=== PATIENT | female | born 1975 | race Caucasian/White ===

== ENCOUNTER 2023-02-15 11:48 | Outpatient (REF) | payer BC, SELFPAY ==
[2023-02-15 13:30] LABS: MANUAL DIFF FLAG NO
[2023-02-15 14:08] LABS: Basophils Absolute Auto 0.1 X10*3/uL (0.0-0.2); Basophils Percent Auto 1.3 % (0-2); Eosinophils Absolute Auto 0.2 X10*3/uL (0.0-0.4); Eosinophils Percent Auto 3.8 % (0-4); Hemoglobin 13.4 g/dl (12.0-16.0); Imm Gran Abs Auto 0.01 X10*3/uL (0.00-0.03); Imm Gran Pct Auto 0.3 % (0.0-0.4); Lymphocytes Absolute Auto 0.8 X10*3/uL (1.2-4.9); Mean Corpuscular HGB Conc 32.7 g/dl (31.0-35.0); Mean Corpuscular Hemoglobin 27.6 pg (27.0-33.0); Mean Corpuscular Volume 84.5 fL (80.0-98.0); Mean Platelet Volume 10.5 fL (9.4-12.3); Monocytes Absolute Auto 0.3 X10*3/uL (0.1-1.2); Monocytes Percent Auto 8.5 % (2-11); Neutrophils Absolute Auto 2.6 x10*3/uL (2.0-8.3); Neutrophils Percent Auto 65.1 % (45-73); Platelet Count 260 X10*3/uL (160-400); Red Blood Count 4.85 X10*6/uL (4.20-5.50); Red Cell Distribution Width 15.5 % (11.0-16.0)
[2023-02-15 14:29] LABS: Alanine Aminotransferase 21 U/L (0-31); Albumin Level 4.2 g/dL (3.5-5.0); Alkaline Phosphatase 107 U/L (39-117); Anion Gap 15 (12-20); Aspartate Amino Transferase 24 U/L (5-31); Bilirubin Direct 0.1 mg/dL (0.0-0.5); Bilirubin Total 0.4 mg/dL (0.0-1.0); Blood Urea Nitrogen 12 mg/dL (9-16); Calcium 9.4 mg/dL (8.4-10.2); Carbon Dioxide 26 mmol/L (22-29); Chloride 103 mmol/L (96-108); Estimated Glomerular Filt Rate > 60; Glucose Random 74 mg/dL (60-115); Potassium 4.8 mmol/L (3.3-5.1); Sodium 139 mmol/L (135-145); TSH reflex Free T4 1.62 uIU/mL (0.32-4.0); Total Protein 7.6 g/dL (6.5-8.0)
== END 2023-02-15 11:49 | disposition home or self-care (01) ==
LOC: HO.HMGCLDS 11:48
PROVIDERS: PCP Internal Medicine; Visit Provider Internal Medicine
DX: F34.1 Dysthymic disorder (principal); R63.5 Abnormal weight gain; C50.919 Malignant neoplasm of unspecified site of unspecified female breast
CPT/HCPCS: 36415; 80048; 80076; 84443; 85025

== ENCOUNTER 2024-05-30 14:07 | Outpatient (AMB) | payer BC, SELFPAY ==
--- NOTE | 2024-05-30 14:11 | MHC.PC.OV ---
Vital Signs 05/30/24 14:15 Height 5 ft 0.75 in Weight 146 lb BMI 27.8 BP 116/76 Blood Pressure Location Rt brachial Pulse 66 Pulse Source Pulse Oximeter Temp 97.2 F Pulse Oximetry (%) 99 Intake Visit Reasons: follow up Intake Note: no other issues Allergies Novocain Allergy (Uncoded 05/30/24 14:45) Anaphylaxis Medication List - Last Reconciled 05/30/24 by Josefina Cadena PA-C bupropion HCl 400 mg PO BID fremanezumab-vfrm (Ajovy) 225 mg (1.5 mL) subcut .QMONTH lorazepam 1 mg PO DAILY PRN naltrexone 50 mg PO DAILY naratriptan 2.5 mg PO Q4H PRN prasterone (dhea) (Intrarosa) 1 insert vaginal BEDTIME sertraline 50 mg PO DAILY zoledronic acid 4 mg IV [id number] PFSH Medical History (Updated 05/30/24 @ 14:59 by Josefina Cadena PA-C) Colon cancer screening History of echocardiogram Osteopenia Persistent depressive disorder Breast cancer, right Premenstrual dysphoric disorder History of Lyme disease Leukopenia Anemia Migraine headache Anxiety Surgical History History of bilateral salpingo-oophorectomy H/O bilateral mastectomy Physical exam (Primary Care) Vital Signs: Last Vital Signs Temp 97.2 F 05/30/24 14:15 Pulse 66 05/30/24 14:15 BP 116/76 05/30/24 14:15 Pulse Ox 99 05/30/24 14:15 Care Plan Goal for BP management: 130/80 at goal BMI result Body Mass Index 27.8 BMI Assessment/Plan discussion: High BMI High, discussed plan: lifestyle, weight reduction, dietary, physical activity and alcohol moderation Coding Level of Care Code Est Pt Level 4 (65610) Complex EM visit Add On G2211 Diagnoses Osteopenia M85.80 Persistent depressive disorder F34.1 Breast cancer, right C50.911 History of echocardiogram Z92.89 Migraine headache G43.909 Anxiety F41.9 Anemia D64.9 Leukopenia D72.819 Colon cancer screening Z12.11 Assessment & Plan Assessment & Plan (1) Osteopenia: Comment: Based on DEXA scan 07/2019 floor T-score of lumbar spine of-0.2, left femoral neck of-1.3 and left total hip of -0.9. - To be performed every 2 years while on aromatase inhibitor - Continue Zoledronic acid infusion every 6 months to decreased risk of bony metastasis given high risk disease in addition to maintaining bone integrity while on aromatase inhibitor started 08/2023, last received 02/2024 and tolerating Code(s): M85.80 - Other specified disorders of bone density and structure, unspecified site Category: Medical Plan: Patient currently on Zoledronic acid infusions every 6 months. Condition is chronic and stable continue to monitor. (2) Persistent depressive disorder: Code(s): F34.1 - Dysthymic disorder Category: Medical Plan: Patient currently on sertraline 50 mg daily, p.r.n. lorazepam 1 mg daily. Condition is chronic and stable continue to monitor. (3) Breast cancer, right: Comment: [facility] Previously on Exemestane 11/2023-02/2024 Previously on Anastrozole 07/2023-11/2023 stared on Letrozole 03/07/2024 - Goal completion of a minimum of 5 years of adjuvant endocrine therapy, but likely 7 years given high risk Code(s): C50.911 - Malignant neoplasm of unspecified site of right female breast Category: Medical Plan: Patient is status post mastectomy being followed by [facility] oncology. Condition is chronic and stable continue to monitor. (4) History of echocardiogram: Comment: Echocardiogram to be performed annually due to given previous administration of Doxorubicin Code(s): Z92.89 - Personal history of other medical treatment Category: Medical Plan: Patient being followed by [facility] Oncology having annual echocardiograms due to previously on doxorubicin. Last echocardiogram was 03/23/2024 within normal limits (5) Migraine headache: Code(s): G43.909 - Migraine, unspecified, not intractable, without status migrainosus Category: Medical Plan: Patient to continue Ajovy injections 1.5 mL subQ monthly. Condition is chronic and stable continue to monitor. (6) Anxiety: Code(s): F41.9 - Anxiety disorder, unspecified Category: Medical Plan: Patient to continue lorazepam 1 mg daily p.r.n., sertraline 50 mg daily. Condition is chronic and stable continue to monitor. (7) Anemia: Code(s): D64.9 - Anemia, unspecified Category: Medical Plan: Condition is chronic and stable patient being followed by Oncology at [facility] will continue to monitor. (8) Leukopenia: Code(s): D72.819 - Decreased white blood cell count, unspecified Category: Medical Plan: Condition is chronic and stable being followed by Oncology at [facility] will continue to monitor (9) Colon cancer screening: Code(s): Z12.11 - Encounter for screening for malignant neoplasm of colon Category: Medical Plan: Patient had a prior bad experience from a colonoscopy in the past. Will order Cologuard. Patient understands if she has a positive Cologuard she will need a colonoscopy. Will continue to monitor. Plan Plan Continuation of annual echocardiograms is necessary for monitoring alongside regular oncologist appointments currently set quarterly. The use of Zometa infusions biannually is endorsed for osteopenia management. A Cologuard test is offered due to prior poor tolerance of colonoscopy procedures. Psychotropic medication for anxiety and depression is adjusted for dosage accuracy, alongside preventative migraine treatments. Dietary supplements remain consistent with bone health recommendations. Comprehensive blood work will capture all necessary parameters, and any abnormal findings will prompt earlier follow-up. Consultation with a new hot metal car operator resulted in Intrarosa management for menopausal symptoms. Orders: Orders Comprehensive Harrison. Panel Fast Today Z00.00 - Encounter for general adult medical examination without abnormal findings Magnesium Today Z00.00 - Encounter for general adult medical examination without abnormal findings Vitamin D 25-OH Total Today Z00.00 - Encounter for general adult medical examination without abnormal findings Vitamin B12 and Folate Today Z00.00 - Encounter for general adult medical examination without abnormal findings Lipid Panel Today Z00.00 - Encounter for general adult medical examination without abnormal findings TSH reflex Free T4 Today Z00.00 - Encounter for general adult medical examination without abnormal findings Vitamin B1 Today Z00.00 - Encounter for general adult medical examination without abnormal findings Hemoglobin A1c Today Z00.00 - Encounter for general adult medical examination without abnormal findings Referrals Cologuard Test Z12.11 - Encounter for screening for malignant neoplasm of colon, Z12.12 - Encounter for screening for malignant neoplasm of rectum Patient Instructions: Patient Instructions - Continue annual echocardiograms per your oncologist's ordering. - Follow up with Dr. Banda in three months. - Schedule Zometa infusions every six months. - Proceed with the Cologuard test as an alternative to colonoscopy. - Maintain prescribed doses for anxiety and depression medications. - Administer regular injections for migraine prevention. - Adhere to calcium, vitamin D, and magnesium supplement regimen. - Submit to blood work at the [facility]. - Use Intrarosa as directed for menopausal symptoms. - Seek immediate care for symptoms of a urinary tract infection or an adverse medical event. Scribe Plan - Not visible on output: History of Present Illness The patient is a 49-year-old female presenting for a routine follow-up. Patient is currently being followed by Oncology at [facility] for breast cancer post-mastectomy. Her cancer treatment regimen involves Letrozole. She was previously on Doxorubicin therapy, although discontinued due to mood disturbances. Due to being on doxorubicin therapy previously she undergoes regular echocardiograms to assess cardiac status. Her oncologist ordered the echocardiogram. She reports she had a normal echocardiogram March of 2024. She reports she had a colonoscopy many many years ago although previous traumatic experiences during colonoscopy have led to discussions of alternative screening measures. The patient?s medical history is notable for treated osteopenia, migraines, anxiety, depressive disorder, resolved premenstrual dysphoric disorder following partial hysterectomy, which halted estrogen-related cycling. Furthermore, she maintains active management of potential osteoporosis with Zometa infusions every 6 months. The patient remains engaged in weight management strategies involving pharmacological interventions including Bupropion and Naltrexone. Patient had a DEXA scan on 07/20/2023 that showed osteopenia. They recommended to be performed every 2 years while on and aromatase inhibitor. A recent, first-ever UTI episode resolved with antibiotic therapy administered at an external facility. Essential chronic disease monitoring and preventative care are ongoing, following protocols suggested by her oncologist and primary care services. Social History - ; present, no children living at home, but they visit during college breaks. - Household includes a supportive family structure. - The patient actively manages weight through prescribed medications. - Reports taking Vitamins D, Calcium, and Magnesium supplements. - Engages with healthcare systems for routine and specialist interventions. Review of Systems - General: Denies any significant weight changes. - Musculoskeletal: Reports history of osteopenia. - Psychiatric: Reports anxiety and depressive disorder. - Neurological: Reports migraines. - Genitourinary: Recent urinary tract infection. Physical Exam Appearance: Alert. Oriented X3. No acute distress. Head: Normal external exam. Normocephalic. Atraumatic. Eyes: Pupils are equal, round, and reactive to light. Extraocular movements intact. Conjunctiva and sclera normal. Eyelids normal. Ears: External auditory canal normal. Tympanic membranes normal. Throat: Pharynx normal. Uvula midline. Moist mucous membranes. Neck: Normal inspection. Neck supple. Full range of motion. No adenopathy. Thyroid Normal. No meningeal signs. No neck mass noted. Cardiovascular: Normal heart rate and rhythm. Heart sound normal. No murmurs noted. Pulses normal throughout. Respiratory: No respiratory distress. Painless inspiration. Breath sounds normal. No wheezes/rales/rhonchi noted. Chest nontender. No accessory muscle usage noted or decreased air movement noted. Abdomen: Soft and nontender. Bowel sounds normal in all 4 quadrants. No distention noted. No organomegaly noted. No visible injury noted. Back: No costovertebral angle tenderness. Full range of motion noted. Skin: Skin warm and dry. Normal skin color. Normal skin turgor. No rashes/lesions/lacerations noted. Extremities: No lower extremity edema. Extremities exhibit normal range of motion. Extremities nontender. Neuro: Oriented X 3. No motor deficit. No sensory deficit. Reflexes normal. Results - Labs: Patient has routine blood work at [facility]. Had labs in March which was within normal limits. New fasting labs will be ordered. Labs printed out so patient can take with her to [facility] due to she already has labs ordered by her oncologist. She understands that they will need to be faxed to us for the blood work that we ordered. Patient was informed and verbally consented to the use of an ambient scribe for clinic note documentation during this visit. Discussion Notes In the visit today, we discussed the necessity of continued echocardiographic monitoring due to doxorubicin's cardiotoxic potential. I explored gastrointestinal screening options with the patient, identifying Cologuard as preferred given previous colonoscopy trauma. I confirmed the resurgence of anxiety and migraine symptoms, recommending adjusted doses of psychotropic medications. The usage of migraine prevention injectables is reviewed and supported due to positive past results. Osteoporosis treatments align with biannual Zometa infusion schedules, noted in her regimen. I highlighted the necessity of comprehensive blood panels relevant to her medication profile, excluding frequent CBCs managed by oncology. I emplaced the therapeutic details of Intrarosa for gynecological issues and ensured no additional medication refills were required at this time.
[2024-05-30 14:15] VITALS: BP 116/76; PULSE 66; TEMP 36.2; O2SAT 99; BMI 27.8
--- OUTSIDE RECORDS SUMMARY | 2024-05-30 17:23 | XMS_ITS | Clinical Summary ---
Author Organization [facility] Address [address] [place] [address] Phone Care Team Providers Care Director Appointment Name Role Phone SammyNick DO Primary Care Provider + [phone] Allergies Active Allergy Reactions Criticality Noted Date Comments Procaine Other (see comments) Medium 03/03/2022 Pain for several weeks Wheat Extract 03/04/2022 Pt reports she still eats wheat, reacted to allergy testing Medications naratriptan (AMERGE) 2.5 MG tablet Take 2.5 mg by mouth 1 (one) time if needed for migraine May repeat in 4 hours if unresolved. Do not exceed 5 mg in 24 hours. Active FLUoxetine (PROzac) 20 MG capsule Take 20 mg by mouth 1 (one) time each day Active Fremanezumab-vf rm (AJOVY SC) Inject 225 mg under the skin every 30 (thirty) days 02/09/2022 Active oxyCODONE (Roxicodone) 5 MG immediate release tablet Take 1 tablet (5 mg total) by mouth every 4 (four) hours if needed for moderate pain for up to 5 doses 5 tablet 03/04/2022 Active Active Problems Problem Noted Date Diagnosed Date Migraine 03/04/2022 Cancer of right female breast 03/03/2022 Social History Tobacco Use Types Packs/Day Years Used Date Smoking Tobacco: Never Smokeless Tobacco: Never Tobacco Cessation:Counseling Given: Not Answered Alcohol Use Standard Drinks/Week Comments Not Currently 0 (1 standard drink = 0.6 oz pure alcohol) former socially, not since [id number] Comments Unknown Sex and Gender Information Value Date Recorded Sex Assigned at Not on file Legal Sex Female 2:09 PM EST Gender Identity Not on file Sexual Orientation Not on file Last Filed Vital Signs Vital Sign Reading Time Taken Comments Blood Pressure 136/87 03/04/2022 10:54 AM EST Pulse 75 03/04/2022 10:54 AM EST Temperature 36.3 ??C (97.4 ??F) 03/04/2022 10:[address] Respiratory Rate 16 03/04/2022 10:54 AM EST Oxygen Saturation 99% 03/04/2022 10:54 AM EST Inhaled Oxygen Concentration - - Weight 63.5 kg (140 lb) 03/04/2022 10:54 AM EST Height 157.5 cm (5' 2 ) 03/04/2022 10:54 AM EST Body Mass Index 25.61 03/04/2022 10:54 AM EST Plan of Treatment Health Maintenance Due Date Last Done Comments Pneumococcal Vaccine: Pediat rics (0 to 5 Years) and At-Risk Patients (6 to 64 Years) (1 of 2 - PCV) 1981 Hepatitis B Vaccine (1 of 3 - 19+ 3-dose series) 01/12 Influenza Vaccine (#1) 2023 Colorectal Cancer Screening: Annual FOBT 01/13/2024 Colorectal Cancer Screening: Colonoscopy 01/13/2024 Colorectal Cancer Screening: Sigmoidoscopy 01/13/2024 Insurance [facility] Care Teams Director Appointment Relationship Specialty Start Date End Date Nick Christianson DO [address] [place] [address] PCP - General Internal Medicine 03/02/22
--- OUTSIDE RECORDS SUMMARY | 2024-05-30 17:23 | XMS_ITS ---
Author Organization Nick Christianson DO, FACP Address [address] [place], [place] [phone] Care Team Providers Care Production Worker Name Role Phone Nick Christianson Primary Care Provider REASON FOR VISIT RE:New pcp Encounters Encounter Location Date Provider Diagnosis Nick Christianson DO, FACP [address] [place] [phone] 03/31/2024 Nick Christianson PLAN OF TREATMENT No Information
--- OUTSIDE RECORDS SUMMARY | 2024-05-30 17:23 | XMS_ITS | Patient Health Record ---
Author Organization Nick Christianson DO, FACP Address [address] [place] [phone] Care Team Providers Care Gear Finisher Name Role Phone Nick Christianson Primary Care Provider [phone] ALLERGIES Allergen (clinical drug ingredient) Drug/Non Drug Allergy documented on EMR Reaction Allergy Type Onset Date Status Novocain pain Drug Allergy Active REASON FOR REFERRAL No Information MEDICATIONS Medication SIG (Take, Route, Fr equency, Duration) Notes Start Date End Date Status Naratriptan HCl 2.5 MG 1 tablet as neede d Orally Twice a day Active Naltrexone HCl 50 MG 0.5 tablet Orally T wice a day for 90 days Active Sertraline HCl 50 MG 1 tablet Orally Onc e a day for 90 days 02/24/2024 Active buPROPion HCl 100 MG 2 tablets Orally Twice a day Active Exemestane 25 MG 1 tablet with a meal Orally Once a day Active Ajovy 225 MG/1.5ML 1.5 mL Subcutaneous Once a month Active LORazepam 1 MG 1 tablet as needed O rally Twice a day for 15 days 02/24/2024 Active IMMUNIZATIONS Vaccine Route Administration Date Status Comme nts COVID-19 Benito (J/J) Unknown 04/11/2021 Administered COVID-19 Benito (J/J) Unknown 08/27/2020 Administered Influenza Unknown 03/19/2015 Refused Influenza Unknown 04/08/2017 Refused Influenza Unknown 04/10/2018 Refused Influenza Unknown 06/08/2019 Refused SOCIAL HISTORY Tobacco Use: Social History Observation Description Date Details (start date - stop date) Never Smoker NA - NA Sex Assigned At : Social History Observation Description Sex Assigned At Unknown Tobacco Use/Smoking Question Answer Notes Patient is a nonsmoker Additional Findings: Tobacco Non-User Cu rrent non-smoker, currently using no form of tobacco Alcohol Screen Question Answer Notes Did you have a drink containing alcohol in the p ast year? No Points 0 Interpretation Negative PROBLEMS Problem Type ICD Code Onset Dates Problem Status W/U Status Risk SNOMED Code Notes Problem Premenstrual dysphoric disorder (N94.3) Active confirmed 277942 Problem Malignant neoplasm of unspecified site of right female breast (C50.911) Active confirmed 451917199 Problem Anxiety (F41.9) Active confirmed 603896 02 Problem Migraine with aura and without status migrainosus, not intractable (G43.109) Active confirmed 7073298 Problem Persistent depressive disorder (F34.1) Active confirmed 4835372322 VITAL SIGNS Height 62.00 in 02/24/2024 Weight 140 lbs 02/24/2024 BMI 25.60 kg/m2 02/24/2024 Encounters Encounter Location Date Provider Diagnosis Nick Christianson DO, [facility] [address] [place], [place] [phone] 05/31/2023 Nick Christianson DO, [address] [id number] 06/03/2023 Nick Christianson DO, [address] [id number] 03/19/2024 Nick Christianson Anxiety F41.9 Nick Christianson DO, [address] [id number] 03/21/2024 Nick Christianson Anxiety F41.9 Nick Christianson DO, [address] [id number] 06/03/2023 Nick Christianson Malignant neoplasm o f unspecified site of right female breast C50.911 ; Weight gain R63.5 and Migraine with aura and without status migrainosus, not intractable G43.109 Nick Christianson DO, [facility] [address] [place], [place] [phone] 02/24/2024 Nick Christianson Anxiety F41.9 ; Migraine with aura and without status migrainosus, not intractable G43.109 and Malignant neoplasm of unspecified site of right female breast C50.911 Nick Christianson DO, [facility] [address] [place], [place] [id number] 09/23/2023 Nick Christianson DO, [facility] [address] [place], [place] [id number] 09/29/2023 Nick Christianson DO, [facility] [address] [place], [place] [id number] 10/05/2023 Nick Christianson Migraine with aura and without status migrainosus, not intractable G43.109 Nick Christianson DO, [facility] [address] [place], [place] [id number] 11/10/2023 Nick Christianson DO, [facility] [address] [place], [place] [id number] 01/09/2024 Nick Christianson DO, [facility] [address] [place], [place] [id number] 02/08/2024 Nick Christianson DO, [address] [id number] 02/20/2024 Nick Christianson DO, [address] [id number] 03/11/2024 Nick Christianson DO, [address] [id number] 03/19/2024 Nick Christianson DO, [address] [id number] 03/31/2024 Nick Christianson DO, [address] [id number] 04/03/2024 Nick Christianson ASSESSMENTS Encounter Date Diagnosis Assessment Notes Treatment Notes Treatment Clinical Notes 03/19/2024 Anxiety (ICD-10 - F41.9) 03/21/2024 Anxiety (ICD-10 - F41.9) 06/03/2023 Malignant neoplasm of unspecified site of right female breast (ICD-10 - C50.911) Follow up with Oncology and Surgery 06/03/2023 Weight gain (ICD-10 - R63.5) 02/24/2024 Anxiety (ICD-10 - F41.9) 02/24/2024 Migraine with aura and without status migrainosus, not intractable (ICD-10 - G43.109) 10/05/2023 Migraine with aura and without status migrainosus, not intractable (ICD-10 - G43.109) 06/03/2023 Migraine with aura and without status migrainosus, not intractable (ICD-10 - G43.109) 02/24/2024 Malignant neoplasm of unspecified site of right female breast (ICD-10 - C50.911) PLAN OF TREATMENT Pending Test Test Name Order Date MAMMOGRAM DECLINE 11/06/2021 Insurance Providers Payer Name Payer Address Payer Phone Subscriber Number Group Number Insured Name Patient Relationship to Insured Coverage Start Date Coverage End Date [facility] [email or web address] [address] [place], [place] [phone] [id number] Sarita Swan Self - patient is the insured MEDICAL (GENERAL) HISTORY Medical History History ICD Code migraine headaches allergies, food anemia leukopenia lyme disease premenstrual dysphoric disorder breast cancer, right Persistent depressive disorder F34.1 Weight gain R63.5 Surgical History Surgery Date(Month/Year) wisdom teeth extraction section breast biopsies
--- OUTSIDE RECORDS SUMMARY | 2024-05-30 17:23 | XMS_ITS ---
Author Organization Nick Christianson DO, FACP Address [address] [place], [place] [phone] Care Team Providers Care Financial Services Agent Name Role Phone iNck Christianson Primary Care Provider REASON FOR VISIT RE:RE:New pcp Encounters Encounter Location Date Provider Diagnosis Nick Christianson DO, FACP [address] [place] [phone] 04/03/2024 Nick Christianson PLAN OF TREATMENT No Information
--- OUTSIDE RECORDS SUMMARY | 2024-05-30 17:23 | XMS_ITS ---
Author Organization Nick Christianson DO [facility] Address [address] [place], [place] [phone] Care Team Providers Care Forestry Aide Name Role Phone Nick Christianson Primary Care Provider REASON FOR VISIT Refills MEDICATIONS Medication SIG (Take, Route, Fr equency, Duration) Notes Start Date End Date Status Sertraline HCl 50 MG 1 tablet Orally Onc e a day for 90 days 02/24/2024 Active Encounters Encounter Location Date Provider Diagnosis Nick Christianson DO, [facility] [address] [place] [phone] 03/21/2024 Nick Christianson Anxiety F41.9 ASSESSMENTS Encounter Date Diagnosis Assessment Notes Treatment Notes Treatment Clinical Notes 03/21/2024 Anxiety (ICD-10 - F41.9) PLAN OF TREATMENT Medication Medication Name Sig Start Date Stop Date Notes Sertraline HCl 50 MG 1 tablet Orally Onc e a day for 90 days 02/24/2024
== END 2024-05-30 14:41 | disposition home or self-care (01) ==
LOC: HO.HMCSH 14:07
PROVIDERS: PCP Internal Medicine; Visit Provider Physician Assistant Medical
DX: M85.80 Other specified disorders of bone density and structure, unspecified site (principal); F34.1 Dysthymic disorder; C50.911 Malignant neoplasm of unspecified site of right female breast; Z92.89 Personal history of other medical treatment; G43.909 Migraine, unspecified, not intractable, without status migrainosus; F41.9 Anxiety disorder, unspecified; D64.9 Anemia, unspecified; D72.819 Decreased white blood cell count, unspecified; Z12.11 Encounter for screening for malignant neoplasm of colon